=== PATIENT | male | born 1980 | race Caucasian/White ===

== ENCOUNTER 2018-12-01 23:22 | Emergency (ER) | payer OTHER ==
[2018-12-01] MEDS ORDERED: Sodium Chloride 0.9% 1,000 ML IV ONE (23:51)
--- NOTE | 2018-12-01 23:54 | EDM.PDOC ---
ED HPI GENERAL MEDICAL PROBLEM - General Chief Complaint: Gastrointestinal Problem Stated Complaint: CAN'T GO TO THE BATHROOM Time Seen by Provider: 12/01/18 23:50 - History of Present Illness INITIAL COMMENTS - FREE TEXT/NARRATIVE: HISTORY AND PHYSICAL: History of present illness: Patient 38-year-old white male presents with a concern of abdominal bloating and urinary retention he states last time he urinated with an approximately 24 hours prior to arrival he denies any medications he does use marijuana he denies any prior abdominal surgery denies similar episode prior has had no fever chills nausea vomiting discomfort with urination or other complaints. He has no known prostatic disease Review of systems: As per history of present illness and below otherwise all systems reviewed and negative. Past medical history: As per history of present illness and as reviewed below otherwise noncontributory. Surgical history: As per history of present illness and as reviewed below otherwise noncontributory. Social history: No reported history of drug or alcohol abuse. Family history: As per history of present illness and as reviewed below otherwise noncontributory. Physical exam: HEENT: Atraumatic, normocephalic, pupils reactive, negative for conjunctival pallor or scleral icterus, mucous membranes moist, throat clear, neck supple, nontender, trachea midline. Lungs: Clear to auscultation, breath sounds equal bilaterally, chest nontender. Heart: S1S2, regular, negative for clicks, rubs, or JVD. Abdomen: Soft, nondistended, mild discomfort suprapubic region no localized tenderness rebound or guarding Negative for masses or hepatosplenomegaly. Negative for costovertebral tenderness. Pelvis: Stable nontender. Genitourinary: Deferred. Rectal: Deferred. Extremities: Atraumatic, negative for cords or calf pain. Neurovascular unremarkable. Neuro: Awake, alert, oriented. Cranial nerves II through XII unremarkable. Cerebellum unremarkable. Motor and sensory unremarkable throughout. Exam nonfocal. Diagnostics: CBC CMP UA urine culture urine drug screen acute abdominal series Therapeutics: Saline lock Clinton catheter with leg Impression: #1 acute urinary retention Definitive disposition and diagnosis as appropriate pending reevaluation and review of above. - Related Data Allergies Allergy/AdvReac Type Severity Reaction Status Date / Time No Known Allergies Allergy Verified 12/02/18 00:13 Home Meds: Home Meds . [No Known Home Meds] 12/02/18 [History] Past Medical History Neurological History: Reports: Head Trauma Psychiatric History: Reports: ADD, Depression - Past Surgical History Musculoskeletal Surgical History: Reports: Other (See Below) Other Musculoskeletal Surgeries/Procedures:: Spinal Fusion Social & Family History - Family History Family Medical History: Noncontributory - Tobacco Use Smoking Status *Q: Never Smoker - Recreational Drug Use Recreational Drug Use: Yes Drug Use in Last 12 Months: Yes Recreational Drug Type: Reports: Marijuana/Hashish ED ROS GENERAL - Review of Systems Review Of Systems: ROS reveals no pertinent complaints other than HPI. ED EXAM, GENERAL - Physical Exam Exam: See Below (See dictation) Course - Vital Signs Last Recorded V/S: Last Vital Signs Temp 36.2 C 12/01/18 23:38 Pulse 90 12/01/18 23:38 Resp 16 12/01/18 23:38 BP 141/98 H 12/01/18 23:38 Pulse Ox 99 12/01/18 23:38 - Orders/Labs/Meds Orders: Active Orders 24 hr Category Date Time Status Abdomen Series w Chest 1V [CR] Stat Exams 12/01/18 23:51 Ordered CULTURE URINE [RM] Stat Lab 12/01/18 23:57 Received Sodium Chloride 0.9% [Normal Saline] 1,000 ml Med 12/01/18 23:51 Active IV STAT Medication Orders Sodium Chloride (Normal Saline) 1,000 mls @ 999 mls/hr IV STAT ONE Stop: 12/02/18 00:51 Last Admin: 12/02/18 00:08 Dose: 999 mls/hr Labs: Laboratory Tests 12/01/18 12/01/18 12/01/18 Range/Units 00:00 00:00 23:57 WBC 7.71 (4.0-11.0) K/uL RBC 5.40 (4.50-5.90) M/uL Hgb 16.2 (13.0-17.0) g/dL Hct 47.7 (38.0-50.0) % MCV 88.3 (80.0-98.0) fL MCH 30.0 (27.0-32.0) pg MCHC 34.0 (31.0-37.0) g/dL RDW Std Deviation 41.5 (28.0-62.0) fl RDW Coeff of Rissa 13 (11.0-15.0) % Plt Count 244 (150-400) K/uL MPV 10.50 (7.40-12.00) fL Neut % (Auto) 65.6 (48.0-80.0) % Lymph % (Auto) 22.6 (16.0-40.0) % Dent % (Auto) 9.1 (0.0-15.0) % Eos % (Auto) 2.6 (0.0-7.0) % Baso % (Auto) 0.1 (0.0-1.5) % Neut # (Auto) 5.1 (1.4-5.7) K/uL Lymph # (Auto) 1.7 (0.6-2.4) K/uL Dent # (Auto) 0.7 (0.0-0.8) K/uL Eos # (Auto) 0.2 (0.0-0.7) K/uL Baso # (Auto) 0.0 (0.0-0.1) K/uL Nucleated RBC % 0.0 /100WBC Nucleated RBCs # 0 K/uL Sodium 140 (136-148) mmol/L Potassium 3.8 (3.5-5.1) mmol/L Chloride 104 (98-107) mmol/L Carbon Dioxide 30.0 (21.0-32.0) mmol/L BUN 19 H (7.0-18.0) mg/dL Creatinine 0.9 (0.8-1.3) mg/dL Est Cr Clr Drug Dosing 109.78 mL/min Estimated GFR (MDRD) > 60.0 ml/min Glucose 107 H (74-106) mg/dL Calcium 9.2 (8.5-10.1) mg/dL Total Bilirubin 0.4 (0.2-1.0) mg/dL AST 19 (15-37) IU/L ALT 50 (14-63) IU/L Alkaline Phosphatase 85 (46-116) U/L Total Protein 7.9 (6.4-8.2) g/dL Albumin 4.3 (3.4-5.0) g/dL Globulin 3.6 (2.6-4.0) g/dL Albumin/Globulin Ratio 1.2 (0.9-1.6) Urine Color YELLOW Urine Appearance CLEAR Urine pH 6.0 (5.0-8.0) Ur Specific Waban >= 1.030 (1.001-1.035) Urine Protein TRACE H (NEGATIVE) mg/dL Urine Glucose (UA) NEGATIVE (NEGATIVE) mg/dL Urine Ketones NEGATIVE (NEGATIVE) mg/dL Urine Occult Blood NEGATIVE (NEGATIVE) Urine Nitrite NEGATIVE (NEGATIVE) Urine Bilirubin NEGATIVE (NEGATIVE) Urine Urobilinogen 0.2 (<2.0) EU/dL Ur Leukocyte Esterase NEGATIVE (NEGATIVE) Urine RBC 0-1 (0-2/HPF) Urine WBC 0-1 (0-5/HPF) Ur Epithelial Cells RARE (NONE-FEW) Urine Bacteria RARE (NEGATIVE) Urine Opiates Screen (NEGATIVE) Ur Oxycodone Screen (NEGATIVE) Urine Methadone Screen (NEGATIVE) Ur Barbiturates Screen (NEGATIVE) Ur Phencyclidine Scrn (NEGATIVE) Ur Amphetamine Screen (NEGATIVE) U Methamphetamines Scrn (NEGATIVE) U Benzodiazepines Scrn (NEGATIVE) U Cocaine Metab Screen (NEGATIVE) U Marijuana (THC) Screen (NEGATIVE) 12/01/18 Range/Units 23:57 WBC (4.0-11.0) K/uL RBC (4.50-5.90) M/uL Hgb (13.0-17.0) g/dL Hct (38.0-50.0) % MCV (80.0-98.0) fL MCH (27.0-32.0) pg MCHC (31.0-37.0) g/dL RDW Std Deviation (28.0-62.0) fl RDW Coeff of Rissa (11.0-15.0) % Plt Count (150-400) K/uL MPV (7.40-12.00) fL Neut % (Auto) (48.0-80.0) % Lymph % (Auto) (16.0-40.0) % Dent % (Auto) (0.0-15.0) % Eos % (Auto) (0.0-7.0) % Baso % (Auto) (0.0-1.5) % Neut # (Auto) (1.4-5.7) K/uL Lymph # (Auto) (0.6-2.4) K/uL Dent # (Auto) (0.0-0.8) K/uL Eos # (Auto) (0.0-0.7) K/uL Baso # (Auto) (0.0-0.1) K/uL Nucleated RBC % /100WBC Nucleated RBCs # K/uL Sodium (136-148) mmol/L Potassium (3.5-5.1) mmol/L Chloride (98-107) mmol/L Carbon Dioxide (21.0-32.0) mmol/L BUN (7.0-18.0) mg/dL Creatinine (0.8-1.3) mg/dL Est Cr Clr Drug Dosing mL/min Estimated GFR (MDRD) ml/min Glucose (74-106) mg/dL Calcium (8.5-10.1) mg/dL Total Bilirubin (0.2-1.0) mg/dL AST (15-37) IU/L ALT (14-63) IU/L Alkaline Phosphatase (46-116) U/L Total Protein (6.4-8.2) g/dL Albumin (3.4-5.0) g/dL Globulin (2.6-4.0) g/dL Albumin/Globulin Ratio (0.9-1.6) Urine Color Urine Appearance Urine pH (5.0-8.0) Ur Specific Waban (1.001-1.035) Urine Protein (NEGATIVE) mg/dL Urine Glucose (UA) (NEGATIVE) mg/dL Urine Ketones (NEGATIVE) mg/dL Urine Occult Blood (NEGATIVE) Urine Nitrite (NEGATIVE) Urine Bilirubin (NEGATIVE) Urine Urobilinogen (<2.0) EU/dL Ur Leukocyte Esterase (NEGATIVE) Urine RBC (0-2/HPF) Urine WBC (0-5/HPF) Ur Epithelial Cells (NONE-FEW) Urine Bacteria (NEGATIVE) Urine Opiates Screen NEGATIVE (NEGATIVE) Ur Oxycodone Screen NEGATIVE (NEGATIVE) Urine Methadone Screen NEGATIVE (NEGATIVE) Ur Barbiturates Screen NEGATIVE (NEGATIVE) Ur Phencyclidine Scrn NEGATIVE (NEGATIVE) Ur Amphetamine Screen POSITIVE (NEGATIVE) U Methamphetamines Scrn POSITIVE (NEGATIVE) U Benzodiazepines Scrn NEGATIVE (NEGATIVE) U Cocaine Metab Screen NEGATIVE (NEGATIVE) U Marijuana (THC) Screen POSITIVE (NEGATIVE) Meds: Medications Generic Name Dose Route Start Last Admin Trade Name Freq PRN Reason Stop Dose Admin Sodium Chloride 1,000 mls @ 999 mls/hr 12/01/18 23:51 12/02/18 00:08 Normal Saline IV 12/02/18 00:51 999 mls/hr STAT ONE Administration Departure - Departure Time of Disposition: 00:43 Disposition: Home, Self-Care 01 Condition: Good Clinical Impression: Encounter for medical screening examination, Polysubstance abuse - Discharge Information Referrals: PCP,None [Primary Care Provider] - Forms: ED Department Discharge Additional Instructions: The following information is given to patients seen in the emergency department who are being discharged to home. This information is to outline your options for follow-up care. We provide all patients seen in our emergency department with a follow-up referral. The need for follow-up, as well as the timing and circumstances, are variable depending upon the specifics of your emergency department visit. If you don't have a primary care physician on staff, we will provide you with a referral. We always advise you to contact your personal physician following an emergency department visit to inform them of the circumstance of the visit and for follow-up with them and/or the need for any referrals to a consulting specialist. The emergency department will also refer you to a specialist when appropriate. This referral assures that you have the opportunity for followup care with a specialist. All of these measure are taken in an effort to provide you with optimal care, which includes your followup. Under all circumstances we always encourage you to contact your private physician who remains a resource for coordinating your care. When calling for followup care, please make the office aware that this follow-up is from your recent emergency room visit. If for any reason you are refused follow-up, please contact the [facility] emergency department at and asked to speak to the emergency department charge nurse. [facility] [address] [place] [id number] Follow-up primary care and/or medical doctor as discussed. Stop Using drugs return as needed as discussed - My Orders Last 24 Hours: My Active Orders 12/01/18 23:51 Abdomen Series w Chest 1V [CR] Stat Sodium Chloride 0.9% [Normal Saline] 1,000 ml IV STAT 12/01/18 23:57 CULTURE URINE [RM] Stat - Assessment/Plan Last 24 Hours: My Active Orders 12/01/18 23:51 Abdomen Series w Chest 1V [CR] Stat Sodium Chloride 0.9% [Normal Saline] 1,000 ml IV STAT 12/01/18 23:57 CULTURE URINE [RM] Stat
[2018-12-02 00:36] LABS: BLOOD UREA NITROGEN,BUN 19 mg/dL (7.0-18.0); CHLORIDE,CL 104 mmol/L (98-107); GLUCOSE RANDOM 107 mg/dL (74-106); POTASSIUM,K 3.8 mmol/L (3.5-5.1); SODIUM,NA 140 mmol/L (136-148)
--- NOTE | 2018-12-02 01:39 | CR ---
Indication: Abdominal pain Technique: Chest x-ray and two view abdomen. Comparison: None Findings/Impression: Lungs are clear. Heart size is within normal limits. Air present within bowel with some air-fluid levels within the colon with air seen to the level of the rectum. This is considered a non specific bowel gas pattern although without convincing evidence of obstruction. Status post lumbar spine surgery. Dictated by Thierno Benjamin MD @ Dec 02 2018 1:34AM Signed by Dr. Thierno Benjamin @ Dec 02 2018 1:37AM
--- NOTE | 2018-12-02 01:54 | CT ---
INDICATION: Abdominal pain, diarrhea and unable to urinate. TECHNIQUE: CT abdomen and pelvis without contrast. COMPARISON: None. FINDINGS: Lower chest: Unremarkable. Liver: Normal in size and attenuation. No masses. Gallbladder and bile ducts: No stones or inflammation. No biliary dilatation. Pancreas: Unremarkable. No mass or inflammation. Spleen: Normal in size. No masses. Adrenal glands: Normal in size. No nodules. Kidneys: Normal in size. No masses, stones, or hydronephrosis. GI tract: Mild gastric distention without wall thickening. Small bowel is decompressed. Appendix is seen and is unremarkable. Colon is upper normal caliber with prominent fluid seen throughout the colon. Vasculature: Unremarkable. Pelvis: Unremarkable. No pelvic masses. Bones: Old L2 fracture status post T12 through L4 posterior fusion with mature appearing bone graft. IMPRESSION: 1. No dilated bowel or localized inflammation. Note is made of fluid throughout the colon which can be seen in a diarrheal illness. 2. Old L2 fracture status post T12 through L4 fusion. Please note that all CT scans at this facility use dose modulation, iterative reconstruction, and/or weight-based dosing when appropriate to reduce radiation dose to as low as reasonably achievable. Dictated by Thierno Benjamin MD @ Dec 02 2018 1:47AM Signed by Dr. Thierno Benjamin @ Dec 02 2018 1:52AM
== END 2018-12-02 02:18 | disposition home or self-care (01) ==
LOC: MW.ED 23:22
DX: R33.9 Retention of urine, unspecified (principal); F19.10 Other psychoactive substance abuse, uncomplicated
CPT/HCPCS: 36415; 51702; 51798; 74022; 74176; 80053; 80305; 81001; 85025; 87086; 96360; 99284; J7040; 99283

== ENCOUNTER 2019-07-24 01:38 | Emergency (ER) | payer SELFPAY ==
[2019-07-24] MEDS ORDERED: predniSONE 20 MG Tab PO ONE (01:58)
[2019-07-24] MEDS ORDERED: Lidocaine 5% 700 MG Patch TOP ONE (01:58)
--- NOTE | 2019-07-24 01:58 | EDM.PDOC ---
ED HPI GENERAL MEDICAL PROBLEM - General Chief Complaint: Lower Extremity Injury/Pain Stated Complaint: LOWER LT LEG PAIN Time Seen by Provider: 07/24/19 01:44 Source of Information: Reports: Patient History Limitations: Reports: No Limitations - History of Present Illness INITIAL COMMENTS - FREE TEXT/NARRATIVE: Is a 39-year-old male is complaining having pain to his anterior leg on the left side which started approximately 4 days ago. 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 He denies any running or pounding type injury. He denies any change in warmth or color. Denies any numbness weakness paresthesias. Pain symptoms are worse with touching the area and with movement. He has not had similar symptoms in the past. There is been no trauma. he has been taking ibuprofen with some relief. 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 Pain Score (Numeric/FACES): 3 - Related Data Allergies Allergy/AdvReac Type Severity Reaction Status Date / Time No Known Allergies Allergy Verified 07/24/19 01:46 Home Meds: Home Meds Lidocaine 5% [Lidoderm 5%] 1 patch TOP DAILY PRN #14 patch 07/24/19 [Rx] Past Medical History HEENT History: Reports: None Cardiovascular History: Reports: None Respiratory History: Reports: None Gastrointestinal History: Reports: None Genitourinary History: Reports: None Musculoskeletal History: Reports: None Neurological History: Reports: Head Trauma Psychiatric History: Reports: ADD, Depression Endocrine/Metabolic History: Reports: None Insulin Pump Model 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 Ibm Mainframe 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 Programmer: None Hematologic History: Reports: None Immunologic History: Reports: None Oncologic (Cancer) History: Reports: None Dermatologic History: Reports: None - Infectious Disease History Infectious Disease History: Reports: None - Past Surgical History Musculoskeletal Surgical History: Reports: Other (See Below) Other Musculoskeletal Surgeries/Procedures:: Spinal Fusion Social & Family History - Family History Family Medical History: Noncontributory - Tobacco Use Smoking Status *Q: Never Smoker - Caffeine Use Caffeine Use: Reports: Soda - Recreational Drug Use Recreational Drug Use: Yes Drug Use in Last 12 Months: Yes Recreational Drug Type: Reports: Marijuana/Hashish Review of Systems - Review of Systems Review Of Systems: Comprehensive ROS is negative, except as noted in HPI. ED EXAM, GENERAL - Physical Exam Exam: See Below Free Text/Narrative:: Exam: See Below Exam Limited By: No Limitations Head: Atraumatic Neck: Normal Inspection. Respiratory/Chest: No Respiratory Distress, Lungs Clear, Normal Breath Sounds, No Accessory Muscle Use. No: Chest Non-Tender Cardiovascular: Normal Peripheral Pulses, Regular Rate, Rhythm, No Edema, No JVD Extremities: Normal Inspection. No: No Pedal Edema. Patient has marked tenderness to light touch on his anterior leg on the left side. There is no warmth or erythema. There is no indication of trauma or change in color. Pain is worse with movement. Findings are consistent with rodriguez splint. There is no indication of compartment syndrome. Neurological: Alert, Oriented, Normal Cognition Psychiatric: Normal Affect Skin Exam: Warm Lymphatic: No Adenopathy Course - Vital Signs Text/Narrative:: I am treating patient with Lidoderm patch and prednisone. He will be given some crutches. He is advised to take ibuprofen with meals. He is to follow-up with an orthopedic provider or treatment manager if symptoms are not improving. He may return to ER if worse. Ice to area if indicated. Last Recorded V/S: Last Vital Signs Temp 36.2 C 07/24/19 01:45 Pulse 88 07/24/19 01:45 Resp 18 07/24/19 01:45 BP 143/94 H 07/24/19 01:45 Pulse Ox 98 07/24/19 01:45 - Orders/Labs/Meds Orders: Active Orders 24 hr Category Date Time Status DME for Discharge [COMM] Stat Oth 07/24/19 02:12 Ordered Meds: Medications Discontinued Medications Generic Name Dose Route Start Last Admin Trade Name Freq PRN Reason Stop Dose Admin Lidocaine 700 mg 07/24/19 01:58 07/24/19 02:02 Lidoderm 5% TOP 07/24/19 01:59 700 mg ONETIME ONE Administration Prednisone 40 mg 07/24/19 01:58 07/24/19 02:02 Prednisone PO 07/24/19 01:59 40 mg ONETIME ONE Administration Departure - Departure Time of Disposition: 02:18 Disposition: Home, Self-Care 01 Condition: Good Clinical Impression: Rodriguez splint of left lower extremity - Discharge Information Instructions: Crutch Use, Adult, [id number] Referrals: PCP,Not In Area [Primary Care Provider] - Forms: ED Department Discharge Additional Instructions: The following information is given to patients seen in the emergency department who are being discharged to home. This information is to outline your options for follow-up care. We provide all patients seen in our emergency department with a follow-up referral. The need for follow-up, as well as the timing and circumstances, are variable depending upon the specifics of your emergency department visit. If you don't have a primary care physician on staff, we will provide you with a referral. We always advise you to contact your personal physician following an emergency department visit to inform them of the circumstance of the visit and for follow-up with them and/or the need for any referrals to a consulting specialist. The emergency department will also refer you to a specialist when appropriate. This referral assures that you have the opportunity for follow-up care with a specialist. All of these measure are taken in an effort to provide you with optimal care, which includes your follow-up. Under all circumstances we always encourage you to contact your private physician who remains a resource for coordinating your care. When calling for follow-up care, please make the office aware that this follow-up is from your recent emergency room visit. If for any reason you are refused follow-up, please contact the [facility] Emergency Department at and asked to speak to the emergency department charge nurse. Care Plan Goals: Ice as needed. Ibuprofen with meals. Meds as prescribed. Return to ER if worse. Follow-up with orthopedic provider or treatment manager if not improving. Sepsis Event Note - Evaluation Sepsis Screening Result: No Definite Risk - Focused Exam Vital Signs: Vital Signs Temp Pulse Resp BP Pulse Ox 07/24/19 01:45 36.2 C 88 18 143/94 H 98 Date Exam was Performed: 07/24/19 Time Exam was Performed: 02:13 - My Orders Last 24 Hours: My Active Orders 07/24/19 02:12 DME for Discharge [COMM] Stat - Assessment/Plan Last 24 Hours: My Active Orders 07/24/19 02:12 DME for Discharge [COMM] Stat
== END 2019-07-24 02:41 | disposition home or self-care (01) ==
LOC: MW.ED 01:38
DX: M79.605 Pain in left leg (principal)
CPT/HCPCS: 99283; A9270